=== PATIENT | female | born 1995 | race Two or more races ===

== ENCOUNTER 2022-10-30 10:10 | Observation (INO) | payer MEDICAID ==
[~2022-10-30] VITALS: Ht 160 cm; Wt 74.4 kg
[~2022-10-30 10:10] MED LIST: PREN-96 PO
[2022-10-30] MEDS ORDERED: NIFEdipine 10 MG CAP PO ONE (11:00)
[2022-10-30] MEDS ORDERED: NIF10C PO (11:05)
[2022-10-30] MEDS: TERBUTALINE SULFATE 1 MG/ML 1ML VIAL SC SCH ×2 (11:18→12:07)
== END 2022-10-30 12:48 | disposition home or self-care (01) ==
LOC: LDRP 10:10 → UNDOADMOB 10:10 → LDRP 10:23 → UNDODISOB 12:48
PROVIDERS: ADMIT Obstetrics & Gynecology; ATTEND Obstetrics & Gynecology
DX: O62.9 Abnormality of forces of labor, unspecified (principal); Z3A.30 30 weeks gestation of pregnancy
CPT/HCPCS: 59025; 81002; 94760; 96372; G0378; J3105

== ENCOUNTER 2022-11-06 08:53 | Observation (INO) | payer MEDICAID ==
[~2022-11-06 08:53] MED LIST changes: +NIF10C PO
== END 2022-11-06 12:42 | disposition home or self-care (01) ==
LOC: UNDOADMOB 11:44 → LDRP 11:44 → UNDODISOB 12:42
PROVIDERS: ADMIT Obstetrics & Gynecology; ATTEND Obstetrics & Gynecology
DX: O60.03 Preterm labor without delivery, third trimester (principal); Z3A.31 31 weeks gestation of pregnancy
CPT/HCPCS: 59025; 81002; 94760; G0378

== ENCOUNTER 2022-11-07 17:06 | Emergency (ER) | payer MEDICAID ==
[~2022-11-07] VITALS: Ht 157.5 cm; Wt 68.0 kg
[2022-11-07 20:48] LABS: Basophils # (auto) 0 10 ^3/uL (0-0.2); Basophils % (auto) 0.3 % (0.0-2.0); Eosinophils # (auto) 0.1 10 ^3/uL (0-0.8); Hematocrit 32.8 % (36.0-46.0); Nucleated Red Blood Cells % 0.1 %
[2022-11-07 20:54] LABS: Eosinophils % (auto) 1.3 % (0.0-7.0); Hemoglobin 11.9 g/dL (12.2-16.2); Lymphocytes # (auto) 2.1 10 ^3/uL (0.4-5.4); Lymphocytes % (auto) 25.4 % (10.0-50.0); Mean Corpuscular Hemoglobin 35.2 pg (28.0-32.0); Mean Corpuscular Hgb Conc. 36.2 g/dL (32.0-36.0); Mean Corpuscular Volume 97.3 fL (80.0-100.0); Monocytes # (auto) 0.5 10 ^3/uL (0-1.3); Monocytes % (auto) 5.6 % (0.0-12.0); Neutrophils # (auto) 5.5 10 ^3/uL (1.6-8.6); Neutrophils % (auto) 67.4 % (37.0-80.0); Red Blood Cells 3.37 10^6/uL (4.0-5.20); Red Cell Distribution Width 12.6 % (11.8-14.3); White Blood Cell 8.2 10^3/uL (4.4-10.8)
[2022-11-08 01:22] VITALS: BP 120/75
== END 2022-11-08 01:23 | disposition home or self-care (01) ==
LOC: ER 17:08
DX: O26.893 Other specified pregnancy related conditions, third trimester (principal); R04.0 Epistaxis; Z3A.31 31 weeks gestation of pregnancy
CPT/HCPCS: 36415; 85025

== ENCOUNTER 2022-11-11 10:54 | Observation (INO) | payer MEDICAID | END 2022-11-11 11:58 | disposition home or self-care (01) | LOC: UNDOADMOB 10:54 → LDRP 10:54 → UNDODISOB 11:58 | PROVIDERS: ADMIT Obstetrics & Gynecology; ATTEND Obstetrics & Gynecology | DX: O60.03 Preterm labor without delivery, third trimester (principal); O99.323 Drug use complicating pregnancy, third trimester; F12.90 Cannabis use, unspecified, uncomplicated; Z3A.32 32 weeks gestation of pregnancy | CPT/HCPCS: 59025; 81002; 94760; G0378 ==

== ENCOUNTER 2022-11-18 10:58 | Observation (INO) | payer MEDICAID | END 2022-11-18 13:06 | disposition home or self-care (01) | LOC: UNDOADMOB 10:58 → LDRP 10:58 | PROVIDERS: ADMIT Obstetrics & Gynecology; ATTEND Obstetrics & Gynecology | DX: O60.03 Preterm labor without delivery, third trimester (principal); O26.893 Other specified pregnancy related conditions, third trimester; R11.0 Nausea; O99.323 Drug use complicating pregnancy, third trimester; F12.90 Cannabis use, unspecified, uncomplicated; Z3A.33 33 weeks gestation of pregnancy | CPT/HCPCS: 59025; 81002 ==

== ENCOUNTER 2022-11-27 10:19 | Observation (INO) | payer MEDICAID ==
[~2022-11-27] VITALS: Ht 157.5 cm; Wt 72.1 kg
== END 2022-11-27 11:21 | disposition home or self-care (01) ==
LOC: UNDOADMOB 10:19 → LDRP 10:19 → UNDODISOB 11:21
PROVIDERS: ADMIT Obstetrics & Gynecology; ATTEND Obstetrics & Gynecology
DX: O60.03 Preterm labor without delivery, third trimester (principal); O99.323 Drug use complicating pregnancy, third trimester; F12.90 Cannabis use, unspecified, uncomplicated; Z3A.34 34 weeks gestation of pregnancy
CPT/HCPCS: 59025; 81002; 82948; G0378

== ENCOUNTER 2022-12-04 10:17 | Observation (INO) | payer MEDICAID | END 2022-12-04 11:45 | disposition home or self-care (01) | LOC: UNDOADMOB 10:17 → LDRP 10:17 | PROVIDERS: ADMIT Obstetrics & Gynecology; ATTEND Obstetrics & Gynecology | DX: O36.5930 Maternal care for other known or suspected poor fetal growth, third trimester, not applicable or unspecified (principal); O60.03 Preterm labor without delivery, third trimester; O99.323 Drug use complicating pregnancy, third trimester; F12.90 Cannabis use, unspecified, uncomplicated; Z3A.35 35 weeks gestation of pregnancy | CPT/HCPCS: 59025; 81002; 94760; G0378 ==

== ENCOUNTER 2022-12-08 09:10 | Observation (INO) | payer MEDICAID | END 2022-12-08 10:23 | disposition home or self-care (01) | LOC: LDRP 09:10 → UNDOADMOB 09:10 → LDRP 09:37 | PROVIDERS: ADMIT Obstetrics & Gynecology; ATTEND Obstetrics & Gynecology | DX: O36.5930 Maternal care for other known or suspected poor fetal growth, third trimester, not applicable or unspecified (principal); O60.03 Preterm labor without delivery, third trimester; Z3A.36 36 weeks gestation of pregnancy | CPT/HCPCS: 59025; 76818; 81002; 94760; G0378 ==

== ENCOUNTER → 2022-12-08 | Outpatient (CLI) | payer MEDICAID ==
[2022-12-08 13:09] LABS: Eosinophils # (auto) 0.1 10 ^3/uL (0-0.8); Nucleated Red Blood Cells % 0.1 %
[2022-12-08 13:11] LABS: Basophils # (auto) 0 10 ^3/uL (0-0.2); Basophils % (auto) 0.5 % (0.0-2.0); Eosinophils % (auto) 1.2 % (0.0-7.0); Hematocrit 35.9 % (36.0-46.0); Hemoglobin 13.1 g/dL (12.2-16.2); Lymphocytes # (auto) 2.8 10 ^3/uL (0.4-5.4); Lymphocytes % (auto) 29.2 % (10.0-50.0); Mean Corpuscular Hemoglobin 35.2 pg (28.0-32.0); Mean Corpuscular Hgb Conc. 36.4 g/dL (32.0-36.0); Mean Corpuscular Volume 96.7 fL (80.0-100.0); Monocytes # (auto) 0.5 10 ^3/uL (0-1.3); Monocytes % (auto) 5.5 % (0.0-12.0); Neutrophils % (auto) 63.6 % (37.0-80.0); Red Blood Cells 3.71 10^6/uL (4.0-5.20); Red Cell Distribution Width 13.1 % (11.8-14.3); White Blood Cell 9.4 10^3/uL (4.4-10.8)
[2022-12-09 07:07] LABS: RPR Non Reactive (Non Reactive)
== END | disposition home or self-care (01) ==
LOC: LAB 10:44
PROVIDERS: ATTEND Obstetrics & Gynecology
DX: Z34.80 Encounter for supervision of other normal pregnancy, unspecified trimester (principal)
CPT/HCPCS: 36415; 84112; 85025; 86592

== ENCOUNTER 2022-12-15 11:34 | Observation (INO) | payer MEDICAID ==
[2022-12-16] MEDS ORDERED: PREN-96 PO (19:34)
[2022-12-16] MEDS ORDERED: NITR-87 PO (19:34)
[2022-12-16] MEDS ORDERED: ACET325T10 PO (19:34)
[2022-12-16] MEDS ORDERED: IBUP600T27 PO (19:38)
[2022-12-16] MEDS ORDERED: DOCU-94 PO (19:38)
== END 2022-12-15 15:08 | disposition home or self-care (01) ==
LOC: LDRP 11:34 → UNDOADMOB 11:34 → LDRP 12:42
PROVIDERS: ADMIT Obstetrics & Gynecology; ATTEND Obstetrics & Gynecology
DX: O24.419 Gestational diabetes mellitus in pregnancy, unspecified control (principal); O36.5930 Maternal care for other known or suspected poor fetal growth, third trimester, not applicable or unspecified; Z3A.37 37 weeks gestation of pregnancy
CPT/HCPCS: 59025; 76818; 81002; 94760; G0378

== ENCOUNTER 2022-12-16 08:39 | Inpatient (IN) | payer MEDICAID ==
[~2022-12-16] VITALS: Ht 157.5 cm; Wt 73.0 kg
[2022-12-16] MEDS ORDERED: LACT. RINGERS/OXYTOCIN 20UNITS 500 ML IV ONE ×2 (14:45→15:15)
[2022-12-16] MEDS ORDERED: PHISODERM TOP SOLN 240ML BTL TOP PRN (14:45)
[2022-12-16] MEDS ORDERED: DERMOPLAST 60ML BOTTLE TOP PRN (14:45)
[2022-12-16] MEDS ORDERED: LACTATED RINGER'S 1,000 ML IV SCH (14:45)
[2022-12-16] MEDS ORDERED: LIDOCAINE 2%HCL (LOCAL ANESTH.) INJ 20ML MDV IJ PRN (14:45)
[2022-12-16] MEDS ORDERED: PROMETHAZINE HCL 25 MG/ML 1ML IV PRN (14:45)
[2022-12-16] MEDS ORDERED: BUTORPHANOL TARTRATE 2 MG/1 ML VIAL IV PRN ×2 (14:45)
[2022-12-16] MEDS ORDERED: WITCH HAZEL-GLYCERIN PAD TOP PRN (14:45)
[2022-12-16] MEDS ORDERED: miSOPROStol 50 MCG per PRE-CUT 1/2 TAB PO PRN (15:15)
[2022-12-16] MEDS ORDERED: TRANEXAMIC ACID 1,000 MG in SODIUM CHL 0.9% 100 ML IV PRN (15:30)
[2022-12-16] MEDS ORDERED: ACETAMINOPHEN 325 MG TAB PO PRN (15:30)
[2022-12-16] MEDS ORDERED: miSOPROStol 100 mcg TAB SL PRN (15:30)
[2022-12-16] MEDS ORDERED: METHYLERGONOVINE MALEATE 0.2 MG/ML AMP IM PRN (15:30)
[2022-12-16] MEDS ORDERED: ONDANSETRON HCL 4 MG/2 ML VIAL IV PRN (15:30)
[2022-12-16] MEDS ORDERED: diphenhdrAMINE HCL 50 MG/1 ML VL IV PRN (15:30)
[2022-12-16] MEDS ORDERED: CARBOPROST TROMETHAMINE 250 MCG/1ML VIAL IM PRN (15:30)
[2022-12-16] MEDS ORDERED: fentaNYL CITRATE 100 MCG/2 ML VL IV PRN (15:30)
[2022-12-16 15:39] LABS: Urine Bacteria NONE SEEN /hpf (None Seen); Urine Blood Negative /uL (Negative); Urine WBC 3 /hpf (0 - 5)
[2022-12-16 15:56] LABS: Albumin 2.6 g/dL (3.4-5.0); BUN/Creatinine Ratio 9.8 (10.0-20.0); Calcium 8.4 mg/dL (8.5-10.1); Potassium 3.6 mmol/L (3.5-5.1)
[2022-12-16 16:07] LABS: INR 0.9 (0.9-1.15); Partial Thromboplastin Time 29.3 sec (24.6-33.4)
[2022-12-16 16:11] LABS: Alcohol, Urine < 3.0 mg/dL (0-10); Barbiturate Scree,Urine NEGATIVE (NEGATIVE); Benzodiazephine Screen, Urine NEGATIVE (NEGATIVE); Cannabinoid Screen, Urine POSITIVE (NEGATIVE); Cocaine Screen, Urine NEGATIVE (NEGATIVE); Opiate Scree,Urine NEGATIVE (NEGATIVE)
[2022-12-16 16:11] LABS: Bilirubin, Total 0.2 mg/dL (0.2-1.0); Total Protein 6.6 g/dL (6.4-8.2)
[2022-12-16 16:13] LABS: Basophils # (auto) 0.1 10 ^3/uL (0-0.2); Basophils % (auto) 0.9 % (0.0-2.0); Eosinophils # (auto) 0.1 10 ^3/uL (0-0.8); Eosinophils % (auto) 0.7 % (0.0-7.0); Hemoglobin 12.3 g/dL (12.2-16.2); Lymphocytes # (auto) 2.3 10 ^3/uL (0.4-5.4); Mean Corpuscular Hemoglobin 34.6 pg (28.0-32.0); Mean Corpuscular Hgb Conc. 36.2 g/dL (32.0-36.0); Mean Corpuscular Volume 95.6 fL (80.0-100.0); Monocytes # (auto) 0.6 10 ^3/uL (0-1.3); Monocytes % (auto) 7.4 % (0.0-12.0); Neutrophils # (auto) 4.7 10 ^3/uL (1.6-8.6); Nucleated Red Blood Cells % 0.1 %; Red Blood Cells 3.56 10^6/uL (4.0-5.20); White Blood Cell 7.7 10^3/uL (4.4-10.8)
[2022-12-16 16:20] LABS: Amphetamine Screen, Urine NEGATIVE (NEGATIVE); Phencyclidine Screen, Urine NEGATIVE (NEGATIVE)
[2022-12-16] MEDS ORDERED: DIPHENOXYLATE W/ATROPINE 2.5 MG TAB PO SCH (18:00)
[2022-12-16] MEDS ORDERED: fentaNYL CITRATE 100 MCG/2 ML VL IV ONE (19:30)
[2022-12-16] MEDS ORDERED: PREN-96 PO (19:34)
[2022-12-16] MEDS ORDERED: ACET325T10 PO (19:34)
[2022-12-16] MEDS ORDERED: NITR-87 PO (19:34)
[2022-12-16] MEDS ORDERED: IBUP600T27 PO (19:38)
[2022-12-16] MEDS ORDERED: DOCU-94 PO (19:38)
[2022-12-16] MEDS ORDERED: hydrALAZINE HCL 20 MG/ML VL IV PRN ×2 (20:30)
[2022-12-16] MEDS: IBUPROFEN 600 MG TAB PO PRN (20:54)
[2022-12-16] MEDS: ACETAMINOPHEN 325 MG TAB PO PRN (20:54)
[2022-12-16 21:42] VITALS: BP 141/74
[2022-12-16 21:44] VITALS: BP 145/71
[2022-12-16 21:59] VITALS: BP 144/69
[2022-12-16 22:06] LABS: Albumin 2.6 g/dL (3.4-5.0); Calcium 8.6 mg/dL (8.5-10.1); Potassium 4.1 mmol/L (3.5-5.1); Uric Acid 4.9 mg/dL (2.6-6.0)
[2022-12-16 22:10] LABS: BUN/Creatinine Ratio 10.9 (10.0-20.0); Bilirubin, Total 0.2 mg/dL (0.2-1.0); Total Protein 6.4 g/dL (6.4-8.2)
[2022-12-16 22:14] VITALS: BP 135/59
[2022-12-16 22:22] LABS: INR 0.92 (0.9-1.15); Partial Thromboplastin Time 27.6 sec (24.6-33.4)
[2022-12-16] MEDS: DOCUSATE SOD 100 MG CAP PO SCH (22:25)
[2022-12-16 23:06] LABS: Basophils # (auto) 0.1 10 ^3/uL (0-0.2); Eosinophils # (auto) 0.1 10 ^3/uL (0-0.8); Eosinophils % (auto) 0.7 % (0.0-7.0)
[2022-12-16 23:08] LABS: Basophils % (auto) 1.1 % (0.0-2.0); Hemoglobin 13.4 g/dL (12.2-16.2); Lymphocytes # (auto) 2.3 10 ^3/uL (0.4-5.4); Lymphocytes % (auto) 24.5 % (10.0-50.0); Mean Corpuscular Hemoglobin 34.5 pg (28.0-32.0); Mean Corpuscular Hgb Conc. 36.3 g/dL (32.0-36.0); Monocytes # (auto) 0.6 10 ^3/uL (0-1.3); Monocytes % (auto) 6.3 % (0.0-12.0); Neutrophils # (auto) 6.4 10 ^3/uL (1.6-8.6); Neutrophils % (auto) 67.4 % (37.0-80.0); Nucleated Red Blood Cells % 0.1 %; Red Blood Cells 3.89 10^6/uL (4.0-5.20); White Blood Cell 9.5 10^3/uL (4.4-10.8)
[2022-12-16 23:19] VITALS: BP 147/67
[2022-12-17] VITALS (10 sets, daily range): BP systolic 111–131; BP diastolic 54–91
[2022-12-17 02:30] LABS: Protein, Urine 37.5 mg/dL (0.0-11.9)
[2022-12-17 06:07] LABS: RPR Non Reactive (Non Reactive)
[2022-12-17] MEDS: IBUPROFEN 600 MG TAB PO PRN ×2 (07:04→18:35)
[2022-12-17] MEDS: ACETAMINOPHEN 325 MG TAB PO PRN (08:49)
[2022-12-17] MEDS: DOCUSATE SOD 100 MG CAP PO SCH (22:05)
[2022-12-18] MEDS: IBUPROFEN 600 MG TAB PO PRN (00:20)
[2022-12-18] MEDS: ACETAMINOPHEN 325 MG TAB PO PRN (03:19)
[2022-12-18 03:30] VITALS: BP 140/63
[2022-12-18 07:30] VITALS: BP 124/86
[2022-12-18 11:26] VITALS: BP 122/75
[2022-12-18] MEDS ORDERED: TETANUS-DIPTH-ACEL PERTUSSIS 0.5ML SYR Tdap IM ONE (12:15)
[2022-12-18 12:25] VITALS: BP 122/75
== END 2022-12-18 12:25 | disposition home or self-care (01) | DRG 560 ==
LOC: LDRP 14:12 → EDSTATUS 14:16
PROVIDERS: ADMIT Obstetrics & Gynecology; ATTEND Obstetrics & Gynecology
PROC: 10E0XZZ Delivery of Products of Conception, External Approach (ICD-10-PCS; principal; 2022-12-16)
DX: O36.5930 Maternal care for other known or suspected poor fetal growth, third trimester, not applicable or unspecified (principal); Z37.0 Single live birth; O14.95 Unspecified pre-eclampsia, complicating the puerperium; Z3A.37 37 weeks gestation of pregnancy; Z20.822 Contact with and (suspected) exposure to COVID-19; O69.81X0 Labor and delivery complicated by cord around neck, without compression, not applicable or unspecified
CPT/HCPCS: 36415; 59025; 80053; 80307; 81001; 81002; 82570; 84156; 84550; 85025; 85610; 85730; 86592; 86850; 86900; 86901; 87426; 90715; 94760; 94762; 96360; 96361; 96365; 96366; 96372; G0378; J2405; J2590